=== PATIENT | female | born 1965 | race Caucasian/White ===

== ENCOUNTER → 2023-12-31 14:16 | Outpatient (REF) | payer OTHER, SELFPAY | LOC: WDC 14:16 | PROVIDERS: ATTENDING PHYSICIAN Internal Medicine Hematology & Oncology; FAMILY PHYSICIAN Physician Assistant Medical | DX: Z12.31 Encounter for screening mammogram for malignant neoplasm of breast (principal) | CPT/HCPCS: 77063; 77067 ==

== ENCOUNTER → 2024-07-07 13:09 | Outpatient (REF) | payer OTHER, SELFPAY | LOC: RAD 13:09 | PROVIDERS: ATTENDING PHYSICIAN Physician Assistant Medical | DX: Z13.820 Encounter for screening for osteoporosis (principal) | CPT/HCPCS: 77080 ==

== ENCOUNTER → 2024-07-12 18:42 | Outpatient (REF) | payer OTHER, SELFPAY | LOC: MRI 3T 18:42 | PROVIDERS: ATTENDING PHYSICIAN Internal Medicine Hematology & Oncology; FAMILY PHYSICIAN Physician Assistant Medical | DX: C50.911 Malignant neoplasm of unspecified site of right female breast (principal); N63.0 Unspecified lump in unspecified breast | CPT/HCPCS: 77049; A9585 ==

== ENCOUNTER → 2025-01-03 14:31 | Outpatient (REF) | payer OTHER, SELFPAY | LOC: WDC 14:31 | PROVIDERS: ATTENDING PHYSICIAN Obstetrics & Gynecology Gynecology; FAMILY PHYSICIAN Physician Assistant Medical | DX: Z85.3 Personal history of malignant neoplasm of breast (principal); Z12.31 Encounter for screening mammogram for malignant neoplasm of breast | CPT/HCPCS: 77063; 77067 ==

== ENCOUNTER 2025-05-28 20:44 | Emergency (ER) | payer OTHER, SELFPAY ==
[2025-05-28 20:49] VITALS: BP 118/90
[2025-05-28 23:02] VITALS: BMI 19.6
--- NOTE | 2025-05-28 23:54 | ED.GENMED ---
History of Present Illness
General
Chief Complaint: Musculo-Skeletal Complaint
Time Seen by Provider: 05/28/25 23:53
History of Present Illness
History of Present Illness:
FOCUSED PAST MEDICAL HISTORY
- The patient has a history of right breast cancer, anemia and Ramsey's thyroiditis
REVIEW OF OLD RECORDS
- Reviewed records, the patient had some management of breast cancer here in the past
Note:
CHIEF COMPLAINT(S)
Ankle pain.
HISTORY OF PRESENT ILLNESS
The patient is a 59-year-old female presenting with right ankle pain. She reports no recent injury or specific traumatic event preceding the onset of pain. The pain began suddenly, and she describes it as a severe, shooting type that was initially
exacerbated by any movement or touch. However, the pain has improved during her visit. The tenderness is mainly localized over the anterior talofibular ligament. On examination, there is noted minimal swelling at the site, but no external signs like
rash or bruising. The Achilles tendon feels tender upon touch. The patient denies pain at the bottom of the foot or any significant knee pain. She denies any fever and reported having a normal temperature. There is no accompanying plantar
fasciitis-like pain or signs consistent with shingles. The patient mentioned that at home, she has not taken any medication for the pain but agreed to try ibuprofen as recommended.
EXTERNAL RECORDS REVIEWED
The x-ray of the ankle was reviewed and revealed no fractures or notable bone abnormalities except for a small heel spur. No signs of arthritis were clearly visible.
PHYSICAL EXAM
- Musculoskeletal: Minimal swelling noted in the ankle area, particularly around the anterior talofibular ligament. Achilles tendon is not tender on palpation. There is decreased active range of motion in dorsiflexion and plantarflexion at the left
ankle
- Skin: No rash or lesions noted. No evidence of shingles
- Nursing notes reviewed and vital signs reviewed.
PLAN
- Provide patient with ankle splint and crutches.
- Educate the patient on the use of anti-inflammatory medications and rest/elevation of the affected extremity.
- Schedule follow-up with an solution specialist.
DIFFERENTIAL DIAGNOSIS
The Differential Diagnosis includes, in no particular order and is not limited to:
- Ankle sprain
- Tendonitis
- Achilles tendinopathy
- Osteoarthritis
- Heel spur
- Cyst
- Nerve impingement
- Cellulitis
- Stress fracture
- Gout
SUMMARY OF ENCOUNTER
A 59-year-old female presented with sudden onset ankle pain without a clear history of trauma. Examination revealed tenderness over the anterior talofibular ligament with minor swelling but no signs of rash or infection. X-rays showed no fractures
or significant bony abnormalities other than a heel spur. Conservative treatment measures were initiated, including the use of a splint, crutches, and recommendation for anti-inflammatory medication. Follow-up with orthopedics was advised.
DISPOSITION
Discharge.
FOLLOW-UP INSTRUCTIONS
The patient is advised to follow up with an orthopedic doctor. The details for contacting a local orthopedist will be provided.
MEDICATION RECONCILIATION
Patient advised to take [id number] ibuprofen for pain management.
MEDICAL DECISION MAKING
- Complexity of Data Reviewed: Chronic conditions affecting care include none explicitly mentioned.
- Data:
Category 1: Non-emergency department records reviewed, including ankle x-rays.
Category 2: My independent interpretation of the ankle x-ray indicates no fractures; heel spur noted.
- Risk: Prescription medication management (ibuprofen) was advised for pain control.
DIAGNOSIS
Ankle pain, suspect sprain (ICD-10: M25.571).
Disposition:
SUMMARY OF ENCOUNTER
A 59-year-old female presented with sudden onset left ankle pain without any clear traumatic event. Examination showed significant tenderness at the anterior talofibular ligament and mild soft tissue swelling, along with decreased range of motion
primarily in the left ankle. There was no notable swelling near the knee at the time of examination, and no clear evidence for a Bakers cyst. Despite these findings, the patients pain had spontaneously improved since its onset. Conservative
measures, including the use of an ankle splint and crutches, were recommended.
DISPOSITION
Discharge.
PLAN
Restrict activity and avoid weight-bearing on the affected ankle. Use an ankle splint and crutches as needed. Consider anti-inflammatory medication (ibuprofen as previously recommended), as well as rest and elevation of the extremity. Schedule
follow-up with an solution specialist for further evaluation and management.
INDEPENDENT REVIEW OF LABS AND INTERPRETATION OF TESTS
- My independent interpretation of the ankle x-ray indicates no fractures with the presence of a heel spur.
PATIENT EDUCATION AND COUNSELING
Educated the patient on the importance of rest and elevation, the proper use of an ankle splint and crutches, and the potential benefits of anti-inflammatory medication for pain management.
FOLLOW-UP INSTRUCTIONS
The patient is advised to follow up with an orthopedic doctor.
MEDICATION RECONCILIATION
Patient advised to take [id number] ibuprofen for pain management.
MEDICAL DECISION MAKING
- Complexity of Data Reviewed: Differential diagnosis includes ankle sprain, tendonitis, Achilles tendinopathy, osteoarthritis, heel spur, cyst, nerve impingement, cellulitis, stress fracture, and gout.
- Data:
- Category 1: Reviewed x-ray of the ankle revealing no fractures; small heel spur noted.
- Category 2: No independent historians input documented.
- Risk: Prescription medication management was advised for pain control.
DIAGNOSIS
Acute left ankle pain
RADIOLOGY
- X-ray of the left ankle shows no acute abnormality, very small calcaneal spur noted
Phy Exam
Physical Exam
Physical Exam:
See HPI
Course
Orders/Labs/Results
Orders:
Orders
05/28/25 23:08
Ankle, left 3 view CR [CR Ankle - Left Min 3 Views ] Urgent
Comment:
Reason For Exam: pain/swelling
05/29/25 00:04
Air Splint Left-Treatment ONCE
Crutches-Treatment ONCE
Vital Signs
Initial and Last Documented VS:
Initial Vital Signs
Temp Pulse Resp BP Pulse Ox
36.9 C 107 16 118/90 100
05/28/25 20:49 05/28/25 20:49 05/28/25 20:49 05/28/25 20:49 05/28/25 20:49
Last Documented Vital Signs
Temp Pulse Resp BP Pulse Ox
36.9 C 92 18 120/50 98
05/28/25 20:49 05/28/25 23:58 05/28/25 23:58 05/28/25 23:58 05/28/25 23:58
*Pulse Oximetry
SaO2: 100
Oxygen Mode of Delivery: Room air
Patient hypoxic: no
*Critical Care Note
Total Time (30-74mins, 75-104mins- exclusive of procedures): Not Applicable
ED Attending Note
-
Portions of this chart may have been created with voice recognition software.� Occasional wrong word or��sound alike� substitutions may have occurred due to the inherent limitations of voice recognition software.
Discharge Plan
Departure
Patient Disposition: Home (Routine Discharge)
Date of Disposition: 05/29/25
Time of Disposition: 00:05
Patient with high blood pressure during this ER visit?: Yes
Discharge Problem:
Acute ankle pain
Instructions: Splint care - ED (DC), BLOOD PRESSURE
Prescriptions:
No Action
dexamethasone 4 MG tablet
8 mg PO .BID WITH CHEMO
aprepitant [Emend] 1 EACH capsule,dose pack
1 blister PO .WITH CHEMO
loperamide 2 MG capsule
2 mg PO Q4HPRN PRN (Reason: DIARRHEA)
Referrals:
Adelaida Vasquez PA-C [Family Provider, Internal Medicine]
Saad Tate MD [Active, Orthopedics]
Activity Restrictions/Additional Instructions:
I recommend NSAIDs such as Aleve at home for the pain. I do not see any clear abnormality on the x-ray. The location of your pain is seen when people have ankle sprains but this would be unlikely in the absence of any trauma. Use the splint and
crutches as needed for comfort. Return here if worse or other concerns. Follow-up Dr. Tate.
Interventions
Interventions:
*Risk Screen - Suicide Last Done: 05/28/25 20:49
*General Assessment Last Done: 05/29/25 00:15
*Neglect/Abuse Screening Last Done: 05/28/25 20:49
*ED- Fall Risk Assessment Last Done: 05/28/25 20:49
*ED COVID-19 Vaccine History Last Done: 05/29/25 00:15
*Nursing Disposition Last Done: 05/29/25 00:15
ED-Musculoskeletal Assessment Last Done: 05/28/25 23:13
Discharge Date and Time
Discharge Date/Time: 05/29/25 00:15
Print Language: [id number]
[2025-05-28 23:58] VITALS: BP 120/50
== END 2025-05-29 00:15 | disposition home or self-care (01) ==
LOC: EMR 20:44
PROVIDERS: EMERGENCY PHYSICIAN Emergency Medicine; FAMILY PHYSICIAN Physician Assistant Medical
DX: M25.572 Pain in left ankle and joints of left foot (principal); M77.32 Calcaneal spur, left foot; R03.0 Elevated blood-pressure reading, without diagnosis of hypertension; E06.3 Autoimmune thyroiditis; Z85.3 Personal history of malignant neoplasm of breast
CPT/HCPCS: 99283; 29515; 73610

== ENCOUNTER → 2025-07-20 14:18 | Outpatient (REF) | payer OTHER, SELFPAY | LOC: MRI 3T 14:18 | PROVIDERS: ATTENDING PHYSICIAN Internal Medicine Hematology & Oncology; FAMILY PHYSICIAN Physician Assistant Medical; REFERRING PHYSICIAN Obstetrics & Gynecology Gynecology | DX: C50.911 Malignant neoplasm of unspecified site of right female breast (principal); N63.0 Unspecified lump in unspecified breast; M81.8 Other osteoporosis without current pathological fracture | CPT/HCPCS: 77049; A9585 ==